=== PATIENT | female | born 1945 | race Caucasian/White ===

== ENCOUNTER → 2024-08-20 11:03 | Outpatient (REF) | payer OTHER, SELFPAY | LOC: HWWDC 11:03 | PROVIDERS: ATTENDING PHYSICIAN Obstetrics & Gynecology; FAMILY PHYSICIAN Family Medicine | DX: Z12.31 Encounter for screening mammogram for malignant neoplasm of breast (principal) | CPT/HCPCS: 77063; 77067 ==

== ENCOUNTER 2024-09-08 00:42 | Emergency (ER) | payer OTHER, SELFPAY ==
[2024-09-08 00:45] VITALS: BP 167/95
[2024-09-08 01:17] LABS: % Basophils 0.8 % (0-2); % Eosinophils 1.3 % (0-6); % Immature Granulocytes 0.3 % (0-0.5); % Lymphocytes 25.4 % (20.5-51.1); % Monocytes 5.8 % (1.7-9.3); % Neutrophils 66.4 % (42.2-75.2); Absolute Basophils 0.1 10^3/uL (0-0.2); Absolute Eosinophils 0.1 10^3/uL (0-0.7); Absolute Lymphocytes 1.9 10^3/uL (1.2-3.4); Absolute Monocytes 0.4 10^3/uL (0.1-0.6); Absolute Neutrophils 5.1 10^3/uL (1.4-6.5); Hemoglobin 14.7 g/dL (12.0-16.0); Mean Corp Hgb Conc. 34.2 g/dL (33.0-37.0); Mean Corpuscular Hgb 31.1 pg (27.0-31.0); Mean Corpuscular Volume 91.1 fL (81.0-99.0); Mean Platelet Volume 9.1 fL (7.4-10.4); Nucleated Red Blood Cells % 0 %; Platelet Count 244 10^3/uL (130-400); Red Blood Cell Count 4.72 10^6/uL (4.20-5.40); Red Cell Dist. Width 12.7 % (11.5-14.5); White Blood Cell Count 7.6 10^3/uL (4.8-10.8)
[2024-09-08 01:37] VITALS: BMI 35.6
[2024-09-08 01:38] LABS: Troponin I < 0.012 ng/ml
[2024-09-08 01:39] LABS: ALT (SGPT) 26 U/L (0-35); AST (SGOT) 24 U/L (14-36); Albumin 3.9 g/dl (3.5-5.0); Alkaline Phosphatase 47 U/L (38-126); Blood Urea Nitrogen 12 mg/dl (7-17); Calcium 9.1 mg/dl (8.4-10.2); Carbon Dioxide 30 mmol/L (22-30); Chloride 100 mmol/L (98-107); Estimated Creatinine Clearance 78 ml/min; Glucose 158 mg/dl (70-99); Potassium 4.1 mmol/L (3.5-5.1); Sodium 137 mmol/L (135-145); Total Bilirubin 0.4 mg/dl (0.2-1.3); Total Protein 6.4 g/dl (6.3-8.2); eGFR > 60.00
--- NOTE | 2024-09-08 01:41 | ED.GENMED ---
History of Present Illness
General
Chief Complaint: Chest Pain
Source: patient
Exam Limitations: none
Time Seen by Provider: 09/08/24 01:29
History of Present Illness
History of Present Illness:
This is a 78 year old female that comes in with c/o chest pain. States that she had taken her BP medication and then went upstairs to go to bed. States that she started with severe chest pain and she though it was indigestion. States that she took
2 TUMS and this did not help. State that she started to panic as the pain was not going away. States that the pain started around 10:30-10:45pm and continued when she was walking into the hospital. State that now she just feels Sore. States that she
did vomit due to the pain. Denies any fever, chills, SOB, abd pain, diarrhea, headache, dizziness, urinary burning.
Past History
Past History
ED Past Medical History: GERD and HTN; Negative IDDM or NIDDM
ED Past Surgical History: Orthopedic (right knee surgery, Bilateral hip replacements) and Other (Blood clot removed from right breast)
Social History
Tobacco: Former smoker
Alcohol: Occasional
Personal:
Living: with family
Review of Systems
Review of Systems
All Other Systems: ROS reviewed and negative except as documented in HPI and ROS
Constitutional: Reports no symptoms; Denies fever or chills
EENT: Reports no symptoms
Respiratory: Reports no symptoms; Denies cough or trouble breathing
Cardiac: Reports chest pain
ABD/GI: Reports nausea and vomiting; Denies abdominal pain or diarrhea
: Reports no symptoms; Denies dysuria, frequency or urgency
Musculoskeletal: Reports no symptoms
Skin: Reports no symptoms
Neurological: Reports no symptoms; Denies dizzy or headache
Psychiatric: Reports no symptoms
Phy Exam
General Physical Exam
General Presentation: well appearing and no apparent distress
General age: appears stated age
General Skin: warm and dry
General Habitus: elderly
General Mental: alert
General Hydration: appears well hydrated
ENT Exam
ENT Exam: TM's normal, pharynx normal and neck supple
Eye Exam
Eye Exam: EOMI
Cardiovascular Exam
Cardiovascular Exam: regular rate/rhythm, no edema, no murmur and normal peripheral pulses
Pulmonary Exam
Pulmonary Exam: lungs clear, no respiratory distress, no rales, chest non tender, no crackles, no rhonchi, no wheezing and no cough
Gastrointestinal Exam
Gastrointestinal Exam: normal bowel sounds, non tender, soft, no pulsatile mass, non distended and other (Obese)
Musculoskeletal Exam
Musculoskeletal Exam: full ROM and no edema
Skin Exam
Skin Exam: normal color, warm/dry, no rash and no petechia
Psychiatric Exam
Psychiatric Exam: normal mood/affect
Scores
Heart Score for Chest Pain Patients
STEMI patient?: No
History: Slightly or Non-Suspicious
ECG: Normal
Age: >/= 65 years
Risk Factors: No Risk Factors
Troponin: </= Normal Limit
Heart Score for Chest Pain Patients: 2
Heart Score Risk: 2.5% MACE over next 6 weeks
Course
Orders/Labs/Results
Orders:
Orders
09/08/24 00:45
Electrocardiogram (*1) Urgent
Reason for Study: Chest Pain
EKG- Treatment ONCE
09/08/24 01:09
Complete Blood Count/With Diff Urgent
Comprehensive Metabolic Panel Urgent
Troponin I Urgent
09/08/24 01:40
EKG- Treatment ONCE
Pantoprazole [Protonix IV] 40 mg IV NOW STA
CR Chest - 2 Views Urgent
Comment:
Reason For Exam: Chest pain
09/08/24 04:06
Troponin I Urgent
Abnormal Lab Results
09/08/24
01:09
MCH 31.1 H pg
(27.0-31.0)
Glucose 158 H mg/dl
(70-99)
09/08/24 01:09
09/08/24 01:09
Hyperglycemia. Troponin <0.012
Vital Signs
Initial and Last Documented VS:
Initial Vital Signs
Temp Pulse Resp BP Pulse Ox
98.2 F 69 18 167/95 99
09/08/24 00:45 09/08/24 00:45 09/08/24 00:45 09/08/24 00:45 09/08/24 00:45
Last Documented Vital Signs
Temp Pulse Resp BP Pulse Ox
98 F 60 17 145/75 98
09/08/24 05:14 09/08/24 05:14 09/08/24 05:14 09/08/24 05:14 09/08/24 05:14
MDM/Problems Addressed
Differential Diagnosis Includes:
GERD, Coronary syndrome
MDM/Problems Addressed:
This is a 78 year old female that comes in with c/o severe chest pain. States that this started after she took her BP medication and went to bed. States that she took TUMS and this did not help so she go nervous. States that she then vomited.
Will check labs, chest x-ray, ECG, Give Protonix.
Patient refused Protonix as stated that she was feeling better. Repeat Troponin is pending.
Chronic conditions affecting care: HTN and Other (GERD)
Acute Exacerbation and/or Progression of Chronic Illness:
GERD
*Radiology
Radiology exam reviewed: preliminary read by ED provider (Chest-negative for active disease. )
*Pulse Oximetry
Patient hypoxic: no
*EKG
Interpreted by ED Provider?: Yes
Heart Rate: 71
Rate: normal
Rhythm: sinus
[place]: normal axis
Interval: normal interval
QRS Pattern: normal QRS
Ischemia: no ischemia
*Business Services Representative Interpretation
Rate: normal
Heart Rate: 67
Rhythm: sinus
*Critical Care Note
Total Time (30-74mins, 75-104mins- exclusive of procedures): Not Applicable
ED Attending Note
-
Portions of this chart may have been created with voice recognition software.� Occasional wrong word or��sound alike� substitutions may have occurred due to the inherent limitations of voice recognition software.
Discharge Plan
Departure
Patient Disposition: Home (Routine Discharge)
Date of Disposition: 09/08/24
Time of Disposition: 05:00
Patient with high blood pressure during this ER visit?: No
Condition: Good
Covid-19: Not Applicable
Discharge Problem:
Chest pain
Instructions: Acid reflux and GERD in adults, Chest Pain PCP Follow Up, BLOOD PRESSURE
Prescriptions:
No Action
calcium carbonate-vit D3-min [Caltrate 600-D Plus Minerals] 1 TAB tablet
2 tab PO DAILY
Omeprazole
PO DAILY
clindamycin HCl 300 MG capsule
300 mg PO TID Qty: 21 0RF
Activity Restrictions/Additional Instructions:
As discussed, your blood work shows that your blood sugar is elevated. Please increase your water intake to watch your sugar intake. Your chest x-ray is normal along with your Troponin. The vomiting may have been due to the a fact that you got
upset. Please follow up with the family doctor in the next 2-3 days for recheck. This may have been your Reflux. Please stay away from any caffeine and don't take your blood pressure medication on an empty stomach. IF YOU HAVE INCREASED OR CHANGING
PAIN, OR YOU HAVE ANY OTHER CONCERNS PLEASE RETURN WITH ANY CONCERNS.
Interventions
Interventions:
*Risk Screen - Suicide Last Done: 09/08/24 00:45
*General Assessment Last Done: 09/08/24 00:45
*Neglect/Abuse Screening Last Done: 09/08/24 00:45
ED- Fall Risk Assessment Last Done: 09/08/24 05:23
*ED COVID-19 Vaccine History Last Done: 09/08/24 00:45
*Nursing Disposition Last Done: 09/08/24 05:23
ED- Cardiac Assessment Last Done: 09/08/24 03:40
Discharge Date and Time
Discharge Date/Time: 09/08/24 05:25
Print Language: CITIZEN OF [place]
[2024-09-08 01:49] VITALS: BP 156/77
[2024-09-08 03:00] VITALS: BP 147/73
[2024-09-08 04:00] VITALS: BP 136/71
[2024-09-08 04:53] LABS: Troponin I < 0.012 ng/ml
[2024-09-08 05:14] VITALS: BP 145/75
== END 2024-09-08 05:25 | disposition home or self-care (01) ==
LOC: EMR 00:42
PROVIDERS: Clinical Nurse Specialist Family Health; EMERGENCY PHYSICIAN Emergency Medicine; FAMILY PHYSICIAN Family Medicine
DX: R07.9 Chest pain, unspecified (principal); I10 Essential (primary) hypertension; K21.9 Gastro-esophageal reflux disease without esophagitis; Z87.891 Personal history of nicotine dependence
CPT/HCPCS: 99285; 71046; 80053; 84484; 85025; 93005

== ENCOUNTER → 2024-12-17 11:16 | Outpatient (REF) | payer OTHER, SELFPAY | LOC: HWRCS 11:16 | PROVIDERS: ATTENDING PHYSICIAN Internal Medicine Cardiovascular Disease; FAMILY PHYSICIAN Family Medicine | DX: I35.1 Nonrheumatic aortic (valve) insufficiency (principal) | CPT/HCPCS: 93306 ==

== ENCOUNTER 2025-01-10 03:14 | Emergency (ER) | payer OTHER, SELFPAY ==
[2025-01-10] VITALS (11 sets, daily range): BP systolic 112–187; BP diastolic 66–91; BMI 36.6
--- NOTE | 2025-01-10 04:25 | ED.GENMED ---
History of Present Illness
General
Chief Complaint: Chest Pain
Source: patient
Exam Limitations: none
Time Seen by Provider: 01/10/25 04:06
Nursing documentation reviewed up to this point in time: agreed with
History of Present Illness
History of Present Illness:
This is a 79-year-old woman with history of hypertension, GERD who states she awoke tonight with abrupt onset of moderate to severe epigastric pain that radiated to her lower substernal region. Associated with nausea without vomiting. She does
have history of GERD but states current pain feels somewhat different from GERD episodes. She denies back pain or flank pain, no neck pain, no cough no shortness of breath.
Nausea is persisting. She also notes passing 4 soft brown stools at home. Denies diarrhea. Abdominal pain persist and now seems generalized, crampy in nature.
Chest pain has resolved.
No close contacts with similar symptoms. No recent travel nor recent antibiotic use. She has not had fever but admits to intermittent chills.
She also notes some urinary frequency since onset, she denies dysuria nor urgency nor hematuria. No flank pain.
Past History
Past History
ED Past Medical History: GERD and HTN; Negative IDDM or NIDDM
ED Past Surgical History: Orthopedic (right knee surgery, Bilateral hip replacements) and Other (Blood clot removed from right breast)
Social History
Tobacco: Former smoker
Alcohol: Occasional
Personal:
Living: with family
Employment: Retired
Family History
Family History: Other (Noncontributory)
Phy Exam
Physical Exam
Physical Exam:
GENERAL: 79-year-old woman appears her stated age, awake and alert, mildly anxious, easily communicative. Ambulatory to and from the bathroom with steady unaided gait.
EYE: anicteric
NECK: Supple, nontender, no meningismus, no significant adenopathy.
ENT: oral mucosa is moist. No rhinorrhea.
CARDIAC: Regular rate and rhythm. no murmur.
LUNGS: Clear breath sounds bilaterally, no acute respiratory distress, no wheezes/rales/rhonchi
ABDOMEN: Rotund, soft, nondistended, moderate generalized tenderness to palpation, no r/g, no cvat. normoactive BS.
NEUROLOGICAL: Alert and oriented x3, no focal neuro deficits. Gait is steady.
SKIN: Warm and dry, normal color, skin intact. No rash.
MUSCULOSKELETAL: No C/C/E. peripheral pulses are full and equal b/l. No palpable tenderness.
PSYCH: Normal and appropriate interaction.
Scores
Heart Score for Chest Pain Patients
STEMI patient?: No
History: Slightly or Non-Suspicious
ECG: Normal
Age: >/= 65 years
Risk Factors: 1 or 2 Risk Factors
Troponin: </= Normal Limit
Heart Score for Chest Pain Patients: 3
Heart Score Risk: 2.5% MACE over next 6 weeks
Course
Orders/Labs/Results
Orders:
Orders
01/10/25
Urinalysis Reflex To Culture Urgent
Date Specimen was Collected: 01/10/25
Time Specimen was Collected: 04:28
01/10/25 03:17
ECG [Electrocardiogram (*1)] Urgent
Reason for Study: Chest Pain
EKG- Treatment ONCE
01/10/25 04:12
Complete Blood Count/With Diff Urgent
Comprehensive Metabolic Panel Urgent
Lipase Urgent
Troponin I Urgent
01/10/25 04:39
Lactic Acid Urgent
01/10/25 05:43
Sucralfate Suspension [Carafate Suspension] 1 gm PO NOW STA
01/10/25 05:55
Troponin I Urgent
Abnormal Lab Results
01/10/25 01/10/25 01/10/25
04:12 04:39 Unknown
WBC 12.0 H 10^3/uL
(4.8-10.8)
Abs Immat Gran (auto) 0.1 H 10^3/uL
(0-0.05)
Absolute Neuts (auto) 10.5 H 10^3/uL
(1.4-6.5)
Absolute Lymphs (auto) 1.0 L 10^3/uL
(1.2-3.4)
Immature Gran % 0.6 H %
(0-0.5)
Neutrophils % 87.4 H %
(42.2-75.2)
Lymphocytes % 8.4 L %
(20.5-51.1)
Glucose 186 H mg/dl
(70-99)
Lactic Acid 2.8 H mmol/L
(0.7-2.0)
Calcium 11.0 H mg/dl
(8.4-10.2)
Urine Ketones 1+ A
(Negative)
Urine Glucose 2+ A
(Negative)
01/10/25 04:12
01/10/25 04:12
Vital Signs
Initial and Last Documented VS:
Initial Vital Signs
Temp Pulse Resp BP Pulse Ox
97.8 F 80 20 183/78 98
01/10/25 03:30 01/10/25 03:30 01/10/25 03:30 01/10/25 03:30 01/10/25 03:30
Last Documented Vital Signs
Temp Pulse Resp BP Pulse Ox
97.8 F 67 13 181/91 97
01/10/25 03:30 01/10/25 06:01 01/10/25 06:01 01/10/25 06:01 01/10/25 06:01
MDM/Problems Addressed
Differential Diagnosis Includes:
Concern for exacerbation of GERD, gastritis other consideration is acute cholecystitis, pancreatitis, gastroenteritis, colitis, diverticulitis. Other consideration is ischemic bowel, less likely ACS.
EKG is unremarkable.
Labs are pending. Will check lactic acid, urinalysis as well.
Will consider imaging depending on results and clinical course.
Chronic conditions affecting care: HTN and Other ( GERD)
*Pulse Oximetry
Patient hypoxic: no
*EKG
Interpreted by ED Provider?: Yes
Interpretation: normal
Comparison EKG: no changes (Unchanged from previous)
Rate: normal
Rhythm: sinus
[place]: normal axis
Interval: normal interval
QRS Pattern: normal QRS
Ischemia: no ischemia
*Director Product Development Interpretation
Rate: normal
Interpretation: normal
Rhythm: sinus
*Critical Care Note
Total Time (30-74mins, 75-104mins- exclusive of procedures): Not Applicable
Update Note
Update Note:
05:45
Patient reports no further generalized abdominal pain and now notes primarily epigastric to lower sternal discomfort, similar to previous episodes of GERD. She does admit to consuming a fair amount of chocolate this evening.
Labs remarkable for mildly elevated white blood cell count of 12. Minimally elevated lactic acid of 2.8. Moderately elevated random glucose 186 without acidosis. Troponin is negative. All LFTs within normal limits.
Due to mildly elevated lactic acid, concern for potential ischemic bowel and I discussed obtaining CT abdomen pelvis with IV contrast. Patient adamantly refuses IV contrast despite lengthy discussion regarding nonionic contrast and IV prep
medications for potential adverse reaction. Nonetheless she continues to decline.
As she does admit that current discomfort feels similar to previous episodes of GERD, will trial a dose of Carafate and will plan to repeat troponin to assess for potential ACS.
She has no further nausea. No bowel movement since arrival to the ED. Mild tenderness epigastric region otherwise abdomen is soft without appreciable tenderness.
Urinalysis shows +2 glucose, +1 ketones otherwise is unremarkable.
06:45
Patient feeling somewhat improved after Carafate.
Repeat troponin is negative.
She continues to adamantly decline CT and at this point overall well in appearance.
As above, she does admit to significant dietary indiscretion, consuming a fair amount of chocolate last night which could certainly be aggravating her GERD/gastritis.
She has Pepcid at home and recommend she initiate a course of Pepcid, initiate strict bland diet avoiding caffeine, chocolate, spicy or fried foods.
Prompt follow-up with PCP for recheck.
Return precautions discussed.
ED Attending Note
-
Portions of this chart may have been created with voice recognition software.� Occasional wrong word or��sound alike� substitutions may have occurred due to the inherent limitations of voice recognition software.
Discharge Plan
Departure
Patient Disposition: Home (Routine Discharge)
Date of Disposition: 01/10/25
Time of Disposition: 07:01
Patient with high blood pressure during this ER visit?: No
Condition: Good
Discharge Problem:
acute gastritis with GERD
Instructions: Acid Reflux and GERD in Adults (DC)
Prescriptions:
No Action
calcium carbonate-vit D3-min [Caltrate 600-D Plus Minerals] 1 TAB tablet
2 tab PO DAILY
Omeprazole
PO DAILY
clindamycin HCl 300 MG capsule
300 mg PO TID Qty: 21 0RF
Referrals:
Cindy Gates MD [Family Provider] - Call in 1-3 days for appt
Interventions
Interventions:
*Risk Screen - Suicide Last Done: 01/10/25 06:03
*General Assessment Last Done: 01/10/25 06:03
*Neglect/Abuse Screening Last Done: 01/10/25 06:03
*ED- Fall Risk Assessment Last Done: 01/10/25 06:03
*ED COVID-19 Vaccine History Last Done: 01/10/25 06:03
ED- Cardiac Assessment Last Done: 01/10/25 04:44
Discharge Date and Time
Print Language: SWEDISH
[2025-01-10 04:26] LABS: % Basophils 0.4 % (0-2); % Eosinophils 0.1 % (0-6); % Immature Granulocytes 0.6 % (0-0.5); % Lymphocytes 8.4 % (20.5-51.1); % Monocytes 3.1 % (1.7-9.3); % Neutrophils 87.4 % (42.2-75.2); Absolute Basophils 0.1 10^3/uL (0-0.2); Absolute Immature Granulocytes 0.1 10^3/uL (0-0.05); Absolute Monocytes 0.4 10^3/uL (0.1-0.6); Absolute Neutrophils 10.5 10^3/uL (1.4-6.5); Hematocrit 44.3 % (37.0-47.0); Hemoglobin 15.6 g/dL (12.0-16.0); Mean Corp Hgb Conc. 35.2 g/dL (33.0-37.0); Mean Corpuscular Hgb 30.6 pg (27.0-31.0); Nucleated Red Blood Cells % 0 %; Platelet Count 277 10^3/uL (130-400); Red Blood Cell Count 5.09 10^6/uL (4.20-5.40); Red Cell Dist. Width 12.4 % (11.5-14.5)
[2025-01-10 04:41] LABS: ALT (SGPT) 22 U/L (0-35); AST (SGOT) 22 U/L (14-36); Albumin 4.3 g/dl (3.5-5.0); Alkaline Phosphatase 66 U/L (38-126); Blood Urea Nitrogen 9 mg/dl (7-17); Carbon Dioxide 28 mmol/L (22-30); Chloride 98 mmol/L (98-107); Glucose 186 mg/dl (70-99); Lipase 83 U/L (23-300); Potassium 4.3 mmol/L (3.5-5.1); Sodium 135 mmol/L (135-145); Total Bilirubin 0.9 mg/dl (0.2-1.3); Total Protein 7.2 g/dl (6.3-8.2); eGFR > 60.00
[2025-01-10 04:43] LABS: Troponin I < 0.012 ng/ml
[2025-01-10 04:46] LABS: Urine Albumin Negative (Neg - Trace); Urine Bilirubin Negative (Negative); Urine Character Clear (Clear); Urine Glucose 2+ (Negative); Urine Ketone 1+ (Negative); Urine Leukocyte Negative (Negative); Urine Nitrite Negative (Negative); Urine Occult Blood Negative (Negative); Urine Specific Gravity 1.015 (<1.030); Urine Urobilinogen Negative (Neg - 1+)
[2025-01-10 04:59] LABS: Lactic Acid 2.8 mmol/L (0.7-2.0)
[2025-01-10 05:15] LABS: Urine Color Straw
[2025-01-10] MEDS: CARAFATE SUSPENSION 1 GM PO (05:52)
[2025-01-10 06:29] LABS: Troponin I < 0.012 ng/ml
== END 2025-01-10 07:10 | disposition home or self-care (01) ==
LOC: EMR 03:14
PROVIDERS: EMERGENCY PHYSICIAN Emergency Medicine; FAMILY PHYSICIAN Family Medicine
DX: K29.00 Acute gastritis without bleeding (principal); K21.9 Gastro-esophageal reflux disease without esophagitis; I10 Essential (primary) hypertension; E87.20 Acidosis, unspecified; Z87.891 Personal history of nicotine dependence
CPT/HCPCS: 99284; 80053; 81003; 83605; 83690; 84484; 85025; 93005